=== PATIENT | male | born 1955 | race Caucasian/White ===

== ENCOUNTER 2025-04-04 15:59 | Emergency (ER) | payer MEDICARE, OTHER ==
[2025-04-04] MEDS: Diphtheria,Pertussis(Acell),Tetanus Vaccine 0.5 ML Syringe IM ONE (17:25)
== END 2025-04-04 18:06 | disposition home or self-care (01) ==
LOC: JD.ED 15:59
DX: S61.411A Laceration without foreign body of right hand, initial encounter (principal); I10 Essential (primary) hypertension; W29.3XXA Contact with powered garden and outdoor hand tools and machinery, initial encounter
CPT/HCPCS: 12004; 73140; 90471; 90715; 99283; J2003